=== PATIENT | female | born 1945 | race Caucasian/White ===

== ENCOUNTER → 2017-02-27 | Outpatient (CLI) | payer MEDICARE ==
[~2017-02-27] MED LIST: BUPR150T8 PO; GABA-586 PO; IBUP200T58 PO; LEVO112T4 PO; METF-620 PO; PROAIR HFA8.5 GM INH; RANI300C PO; SERT100T PO; SIMV40TA3 PO
[2017-02-27 09:31] LABS: ALBUMIN 3.8 g/dL (3.4-5.0); CALCIUM 9.5 mg/dL (8.5-10.1); GFR 54.7; POTASSIUM 3.8 mmol/L (3.5-5.1)
[2017-02-27 09:35] LABS: BASO # 0.1 x10^3/uL (0.0-0.2); BASO % 1 % (0-3); EOS % 4 % (0-3); HEMATOCRIT 35.7 % (36.0-47.0); HEMOGLOBIN 11.8 g/dL (12.0-15.5); LYMPH # 1.7 x10^3/uL (1.0-4.8); LYMPH % 22 % (24-48); MEAN CORPUSCULAR HEMOGLOBIN 27 pg (25-35); MEAN CORPUSCULAR HGB CONC 33 g/dL (31-37); MEAN CORPUSCULAR VOLUME 80 fL (79-100); MONO % 6 % (0-9); NEUT % 68 % (31-73); PLATELET COUNT 246 x10^3/uL (140-400); RED BLOOD COUNT 4.47 x10^6/uL (3.50-5.40); RED CELL DISTRIBUTION WIDTH 15.4 % (11.5-14.5)
[2017-02-27 09:36] LABS: BILIRUBIN,URINE SMALL (NEG); GLUCOSE,URINE NEGATIVE (NEG); NITRITE,URINE NEGATIVE (NEG); PH,URINE 5.5; PROTEIN,URINE NEGATIVE (NEG-TRACE); UROBILINOGEN,URINE 0.2 mg/dL (0.2 mg/dL)
[2017-02-27 09:41] LABS: PROTHROMBIN TIME PATIENT 12.2 SEC (11.7-14.0)
[2017-02-27 09:54] LABS: SQUAMOUS EPITHELIAL CELL,UR FEW /LPF
[2017-02-27 09:55] LABS: BACTERIA,URINE FEW /HPF (0-FEW); RBC,URINE 0 /HPF (0-2); WBC,URINE OCC /HPF (0-4)
--- NOTE | 2017-02-27 13:24 | EKG ---
[facility] [address] [place] [address] Test Date: 2017-02-27 Test Time: 13:08:22 Pat Name: MARCELL HODGE Department: Room: Gender: F Coo: : 1945 Requested By: MINI OSMAN Order Number: [id number] Reading MD: Felipa Aldana Measurements Intervals [place] Rate: 68 P: 37 MN: 160 QRS: -5 QRSD: 84 T: 23 QT: 372 QTc: 400 Interpretive Statements SINUS RHYTHM LEFTWARD AXIS NO SPECIFIC ECG ABNORMALITIES RI6.01 No previous ECG available for comparison Electronically Signed On 02-28-2017 20:19:08 CDT by Felipa Aldana
--- NOTE | 2017-02-27 15:49 | RAD ---
Chest radiograph 02/27/2017 at 1351 hours Indication: Right total knee arthroplasty Comparison: Chest radiograph 01/28/2008 Technique: PA and lateral views of the chest are provided. Findings: Cardiomediastinal silhouette is within normal limits. No pleural effusions, pulmonary vascular congestion or pneumothorax. The lungs are clear. There is anterior wedge deformity of upper lumbar vertebrae with focal kyphosis at the thoracolumbar junction, new since the prior radiograph. Findings are likely chronic. Impression: 1. No acute cardiopulmonary process. 2. Focal kyphosis at the thoracolumbar junction with anterior wedge deformity of upper lumbar vertebra, likely related to chronic compression deformity.
== END | disposition home or self-care (01) ==
LOC: SURGPAT 13:45
PROVIDERS: ATTEND Orthopaedic Surgery
DX: M40.295 Other kyphosis, thoracolumbar region (principal); Z96.651 Presence of right artificial knee joint; R79.1 Abnormal coagulation profile
CPT/HCPCS: 36415; 71020; 80048; 81001; 82040; 83036; 85025; 85610; 85651; 85730; 87641; 93005

== ENCOUNTER 2017-03-14 09:31 | Inpatient (IN) | payer MEDICARE ==
[2017-03-14] VITALS (7 sets, daily range): BP systolic 114–143; BP diastolic 58–75
[~2017-03-14] VITALS: Ht 170.2 cm; Wt 85.3 kg
[~2017-03-14 09:31] MED LIST changes: +BACITRACIN 50,000 UNIT in IV NORMAL SALINE 1000ML BAG 1,000 ML IRR ONE; +HYDROcodone/APAP 7.5/325MG 1 TAB TABLET PO PRN; +IV RINGERS,LACTATED 1000ML 1,000 ML IV SCH; +LIDOCAINE 1% 1 ML SYRINGE. ID PRN; +MELOXICAM 7.5 MG TABLET PO PRN; +MORPHINE SULFATE 5 MG, KETOROLAC TROMETHAMINE 30 MG, ROPIVacaine 0.5% PF 60 ML, EPINEPH... INT ART ONE; +ONDANSETRON PF 4 MG/2 ML VIAL. IV PRN; +PROCHLORPERAZINE 10 MG/2 ML VIAL. IV PRN; +TRANEXAMIC ACID 1,000 MG in IV NS 50ML -- 1ST BAG INJ ONE; +TRANEXAMIC ACID 1,000 MG in IV NS 50ML -- 2ND BAG INJ ONE; +fentaNYL PF VIAL 100 MCG/2 ML VIAL IV PRN
[2017-03-14] MEDS ORDERED: MELO15TA6 PO (10:01)
[2017-03-14] MEDS ORDERED: WARF5TAB7 PO (10:01)
[2017-03-14] MEDS ORDERED: ACETAMINOPHEN 500 MG TABLET PO ONE (10:15)
[2017-03-14] MEDS ORDERED: fentaNYL PF VIAL 100 MCG/2 ML VIAL ONE (10:36)
[2017-03-14] MEDS ORDERED: MIDAZOLAM HCL/PF 2 MG/2 ML VIAL. ONE (10:36)
[2017-03-14 11:02] LABS: PROTHROMBIN TIME PATIENT 12.9 SEC (11.7-14.0)
[2017-03-14] MEDS ORDERED: PROPOFOL 20 ML IV ONE (11:10)
[2017-03-14] MEDS ORDERED: ONDANSETRON PF 4 MG/2 ML VIAL. ONE (11:10)
[2017-03-14] MEDS ORDERED: LIDOCAINE 2% PF Vial for OR 5 ML VIAL. ONE (11:10)
[2017-03-14] MEDS ORDERED: DEXAMETHASONE SOD PHOS 20 MG/5 ML VIAL. ONE (11:10)
[2017-03-14] MEDS ORDERED: FAMOTIDINE 20 MG/2 ML VIAL ONE (11:10)
[2017-03-14] MEDS ORDERED: diphenhydrAMINE 50 MG/ML VIAL IV PRN (11:45)
[2017-03-14] MEDS ORDERED: fentaNYL PF VIAL 100 MCG/2 ML VIAL IV PRN ×2 (11:45)
[2017-03-14] MEDS ORDERED: MORPHINE SULFATE 4 MG/ML DISP.SYRIN. IV PRN ×2 (11:45)
[2017-03-14] MEDS ORDERED: CALCIUM CARBONATE 500 MG TAB.CHEW PO PRN (11:45)
[2017-03-14] MEDS ORDERED: ZOLPIDEM 5 MG TABLET. PO PRN (11:45)
[2017-03-14] MEDS ORDERED: MORPHINE SULFATE 10 MG/ML VIAL. IV PRN (11:45)
[2017-03-14] MEDS ORDERED: MORPHINE SULFATE 2 MG/ML DISP.SYRIN. IV PRN (11:45)
[2017-03-14] MEDS ORDERED: PROCHLORPERAZINE 10 MG/2 ML VIAL. IV PRN (11:45)
[2017-03-14] MEDS ORDERED: traMADol 50 MG TABLET PO PRN ×2 (11:45)
[2017-03-14] MEDS ORDERED: 0.9 % SODIUM CHLORIDE 10 ML DISP.SYRIN. IV PRN (11:45)
[2017-03-14] MEDS ORDERED: DEXTROSE 50% 25 GM / 50ML DISP.SYRIN. IV PRN (11:45)
[2017-03-14] MEDS ORDERED: hydrALAZINE 20 MG/ML VIAL. ONE ×2 (12:15→13:07)
[2017-03-14] MEDS ORDERED: GLYCOPYRROLATE 1 MG/5 ML VIAL. ONE (13:07)
[2017-03-14] MEDS ORDERED: NEOSTIGMINE METHYLSULFATE 5 MG/5 ML SYRINGE. ONE (13:08)
[2017-03-14] MEDS ORDERED: DESFLURANE > 120 MINUTES IH ONE (13:33)
--- NOTE | 2017-03-14 14:53 | RAD ---
2 views of the right knee compared to similar study dated January 03, 2017 for postop total knee arthroplasty. Findings: There are postsurgical changes of total knee arthroplasty. No periprosthetic lucencies are identified. No unexpected radiopaque foreign bodies are evident. Impression: 1. Postsurgical changes of a total knee arthroplasty.
--- NOTE | 2017-03-14 14:54 | HP ---
ADMIT DATE: 03/14/2017 ORTHOPEDIC PREOPERATIVE HISTORY AND PHYSICAL PRINCIPAL DIAGNOSIS: Degenerative joint disease of right knee. HISTORY OF PRESENT ILLNESS: The patient has a long history of right knee pain severely limiting her activities of daily living. It worse on startup, much more severe than the left knee, which gives her intermittent problems. She has had previous injections in the past including corticosteroid and viscosupplementation, which were not only very painful, but provided her very little relief. She also has some problems with the left foot chronically, which again overload her right knee and after our previous discussion in clinic, wants to proceed with surgical evaluation and treatment. PAST MEDICAL HISTORY: Significant for depression, diabetes mellitus, hypothyroidism, hypertension, asthma, reflux, and menopause. PAST SURGICAL HISTORY: Rectal fissure repair, hysterectomy due to fibroids, thyroglossal duct cyst, tonsil and adenoidectomy, eye surgeries, umbilical hernia repair, wrist surgery, left knee arthroscopy, cholecystectomy, right knee arthroscopy as well as previous colonoscopies. FAMILY HISTORY: Her mom from type 2 diabetes, hypertension, and cancer of the colon. Father of heart disease. Brother is alive with arthritis. SOCIAL HISTORY: Denies smoking, alcohol or drug use. Her spouse is in a nursing facility. 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 MEDICATIONS: List is reviewed. ALLERGIES: Include SULFA. REVIEW OF SYSTEMS: Denies any chest pain, shortness of breath, or recent medical issues. PHYSICAL EXAMINATION: VITAL SIGNS: Per admission sheet. HEENT: Atraumatic, normocephalic. HEART: Regular rate and rhythm. LUNGS: Clear to auscultation bilaterally. ABDOMEN: Benign. EXTREMITIES: Examination of both knees reveals some joint line tenderness. Pain on extremes of range of motion, particularly on the right knee with patellofemoral crepitus. No evidence of instability present. IMAGING: X-rays of the right knee show severe tricompartmental degenerative changes. ASSESSMENT: Right knee pain and degenerative osteoarthritis. TREATMENT PLAN: I had gone over with her previously in the clinic the risks, benefits, postoperative course of possible total knee arthroplasty including possibility of infection, nerve or blood vessel damage, premature wear or loosening, continued pain, medical or other anesthetic complications among others. All her questions were answered. Consent was obtained and she agrees to proceed with operative evaluation and treatment with joint center admission to follow today. MINI OSMAN MD DR: JOVANA/anjali JOB#: [id number] / [id number] DEDRICK Schwarz APRN
--- NOTE | 2017-03-14 15:08 | PDOC4 ---
Operative Note Operative Note Date of surgery: 03/14/2017 Preoperative diagnosis right knee degenerative joint disease Postoperative diagnosis: Same Procedure: Right total knee arthroplasty Surgeon: Jeff Assist: Homa Anesthesia: Gen. endotracheal Estimated blood loss: 250 mL Complications: None Specimens: Cartilage surfaces to pathology Findings: Above Operative indications: Patient is a 71-year-old female with progressive right knee pain unresponsive to nonoperative treatment including injections worse on start up worse with activity. We had discussed in clinic and preoperatively possible complications of infection nerve or blood vessel damage continued pain medical or other anesthetic consultations among others. All her questions were answered she agrees to proceed with surgical evaluation and treatment. Operative text: Patient was identified procedure verified patient placed in the supine position on the operating table. After adequate amounts of general endotracheal anesthesia were administered a thigh tourniquet was placed and the right lower extremity was prepped and draped in standard sterile fashion. After timeout was performed patient procedure identified and verified, a midline incision was made and a medial parapatellar approach carried out bleeding points were controlled by electrocautery and with the aqua Mantis device tourniquet was not inflated for the procedure. Patella was everted fat pad was excised femur was drilled for the intramedullary cutting guide which was set standard due to lack of a very significant flexion contracture. Sizing carried out with a size 6 femur anterior posterior chamfer cuts were made ACL was excised PCL was retained. Tibial cut was made with extramedullary cutting jig and flexion and extension gaps were balanced with a 9 mm spacer. A size 5 right journey tibial baseplate trial was placed in proper alignment and a size 6 cruciate retaining femoral component which provided excellent stability range of motion and ligament balance. Patella resurfacing was carried out to accommodate a 35 mm patella and lateral excess bone was removed to prevent impingement. Excellent patellar tracking was noted without tilt or instability. Femoral lug holes were drilled tibial was drilled and broached trial components were removed bleeding points again in the area of the capsule geniculate arteries and posterior knee were particularly coagulated with the aqua Mantis device thorough irrigation carried out normal saline solution and the following [employer] journey 2 components were placed using [employer] rally HV bone cement: A size 5 right journey 2 tibial baseplate a size 6 right journey 2 cobalt-chromium cruciate retaining femoral component, both were placed and excess cement were removed a size 35 mm round patellar component was likewise cemented in place. A 9 mm temporary spacer was placed and after cement was cleared and verified dry journey to polyethylene articular insert was snapped in place 9 mm thickness. Again excellent stability ligament balance motion patellofemoral tracking were noted thorough irrigation carried out normal saline solution Hemovac drain and pain catheter were placed the joint capsule and surrounding tissues were infused with pain catheter mixture. Retinaculum was closed with interrupted #2 Ethibond suture and a and reinforced in a running fashion as well as reinforced with a strata fix #1 PDS barbed suture. Subcutaneous closure with buried Vicryl suture subcuticular closure with 3-0 Monocryl and a yolande drain was then placed. Patient was returned to recovery room in stable condition having tolerated procedure well. Please note that Kristen santillan assist was present for the procedure assisting with the prepping draping positioning retraction and skin closure MINI OSMAN MD Mar 14, 2017 15:08
[2017-03-14] MEDS ORDERED: ALBUTEROL SULFATE 2.5 MG/3 ML NEBU. NEB PRN (15:30)
[2017-03-14] MEDS ORDERED: WARFARIN 7.5 MG TABLET. PO ONE (16:00)
[2017-03-14] MEDS: FERROUS SULFATE 325 MG TABLET. PO SCH (21:00)
[2017-03-14] MEDS: SENNOSIDES/DOCUSATE 8.6/50MG TABLET. PO SCH (21:00)
[2017-03-14] MEDS: CELECOXIB 200 MG CAPSULE. PO SCH (21:14)
[2017-03-14] MEDS: buPROPion SR 150 MG TABLET.SA PO SCH (21:14)
[2017-03-14] MEDS: SIMVASTATIN 40 MG TABLET. PO SCH (21:14)
[2017-03-14] MEDS: GABAPENTIN 300 MG CAPSULE. PO SCH ×2 (21:14→21:21)
[2017-03-14] MEDS: SERTRALINE 50 MG TABLET. PO SCH (21:15)
[2017-03-14] MEDS: IV DEXTROSE 5 %-0.45 % NACL 1,000 ML IV SCH ×2 (21:36→23:03)
[2017-03-15 03:00] VITALS: BP 124/61
--- NOTE | 2017-03-15 03:03 | ACF ---
Admission Forms Criteria PAIN MANAGEMENT GR Clinical Indications for Admission to Inpatient Care (Place 'X' for any and all applicable criteria): Hospital admission is needed for appropriate care of the patient because of 1 or more of the following are present (1)(2)(3)(4)(5): [ ]I. Severe pain requiring acute inpatient management as indicated by 1 or more of the following (2)(5)(10): [ ]a) Continuous or frequent (eg, every 2 to 4 hours) parenteral analgesics required [A] [ ]b) Necessity (ie, alternative approaches not effective) for analgesic regimen that can only be performed or initiated in inpatient setting [X]II. Pain causing debilitation to the point of inability to function or be supported at any other level of care [ ]III. Severe side effects from pain medications as indicated by ANY ONE of the following (12)(13)(14)(15): [ ]a) Uncontrollable seizures [ ]b) Cardiac arrhythmias of immediate concern [ ]c) Dehydration that is severe or persistent [ ]d) Vomiting that is severe or persistent [ ]e) Altered mental status that is severe or persistent [ ]f) Obstipation with inadequate GI function to maintain nutrition The original [employer] content created by [employer] has been revised. The portions of the content which have been revised are identified through the use of italic text or in bold, and [employer] [facility] [employer] has neither reviewed nor approved the modified material. All other unmodified content is copyright [employer]. Please see references footnoted in the original [employer] edition 2016 Admission Criteria Met?: Yes RUFINA DIAMOND Mar 15, 2017 03:03
[2017-03-15 05:55] LABS: INR 1.3 (0.8-1.1); PROTHROMBIN TIME PATIENT 15.3 SEC (11.7-14.0)
[2017-03-15] MEDS ORDERED: MAGNESIUM HYDROXIDE 2,400 MG/30 ML ORAL.SUSP. PO PRN (06:00)
[2017-03-15 06:15] VITALS: BP 113/52
[2017-03-15] MEDS: LEVOTHYROXINE 112 MCG TABLET PO SCH (07:22)
[2017-03-15] MEDS: IV DEXTROSE 5 %-0.45 % NACL 1,000 ML IV SCH ×2 (07:36→17:36)
[2017-03-15 07:56] LABS: HEMATOCRIT 30.5 % (36.0-47.0); HEMOGLOBIN 9.6 g/dL (12.0-15.5)
[2017-03-15] MEDS: CELECOXIB 200 MG CAPSULE. PO SCH ×2 (09:00→21:36)
[2017-03-15] MEDS: SENNOSIDES/DOCUSATE 8.6/50MG TABLET. PO SCH (09:13)
[2017-03-15] MEDS: MULTIVITAMIN with MINERAL TABLET. PO SCH (09:13)
[2017-03-15] MEDS: buPROPion SR 150 MG TABLET.SA PO SCH ×2 (09:13→21:37)
[2017-03-15] MEDS: SERTRALINE 50 MG TABLET. PO SCH (09:14)
[2017-03-15] MEDS: FERROUS SULFATE 325 MG TABLET. PO SCH ×2 (09:14→16:38)
[2017-03-15] MEDS: GABAPENTIN 300 MG CAPSULE. PO SCH ×3 (09:16→21:36)
[2017-03-15 11:20] VITALS: BP 112/59
[2017-03-15] MEDS ORDERED: HYDROcodone/APAP 10/325 1 TAB TABLET PO PRN (13:45)
[2017-03-15] MEDS: HYDROcodone/APAP 7.5/325MG 1 TAB TABLET PO PRN ×2 (14:53→21:37)
[2017-03-15] MEDS ORDERED: BISACODYL 10 MG SUPP.RECT. PR PRN (16:00)
[2017-03-15] MEDS ORDERED: WARFARIN 5 MG TABLET. PO ONE (16:00)
--- NOTE | 2017-03-15 18:11 | PDOC ---
PROGRESS NOTES Subjective Subjective Problems overnight: Has difficulty with tolerance to multiple pain medications did well with hydrocodone today Objective Vital Signs Vital Signs Date Time Temp Pulse Resp B/P (MAP) Pulse Ox O2 Delivery O2 Flow Rate FiO2 03/15/17 17:52 16 03/15/17 16:00 95 Room Air 03/15/17 11:20 99.2 84 112/59 (76) 99.2 03/15/17 06:15 2.0 Physical Exam Dressing clean dry intact Hemovac pain catheter is all intact she has good early range of motion intact distal neurovascular status good stability Labs Laboratory Tests Test 03/14/17 10:00 03/14/17 10:05 03/14/17 14:12 03/14/17 17:07 Prothrombin Time 12.9 SEC (11.7-14.0) Prothromb Time International Ratio 1.0 (0.8-1.1) Activated Partial Thromboplast Time 27 SEC (24-38) Glucose (Fingerstick) 123 mg/dL (70-99) 188 mg/dL (70-99) 150 mg/dL (70-99) Test 03/14/17 20:42 03/15/17 04:05 03/15/17 06:35 03/15/17 11:34 Glucose (Fingerstick) 140 mg/dL (70-99) 130 mg/dL (70-99) 108 mg/dL (70-99) Hemoglobin 9.6 g/dL (12.0-15.5) Hematocrit 30.5 % (36.0-47.0) Mean Corpuscular Hemoglobin Concent 32 g/dL (31-37) Prothrombin Time 15.3 SEC (11.7-14.0) Prothromb Time International Ratio 1.3 (0.8-1.1) Laboratory Tests Test 03/14/17 20:42 03/15/17 04:05 03/15/17 06:35 03/15/17 11:34 Glucose (Fingerstick) 140 mg/dL (70-99) 130 mg/dL (70-99) 108 mg/dL (70-99) Hemoglobin 9.6 g/dL (12.0-15.5) Hematocrit 30.5 % (36.0-47.0) Mean Corpuscular Hemoglobin Concent 32 g/dL (31-37) Prothrombin Time 15.3 SEC (11.7-14.0) Prothromb Time International Ratio 1.3 (0.8-1.1) Imaging Postop x-rays show excellent positioning of the total knee arthroplasty Assessment Assessment POD# [1], S/P [right total knee arthroplasty] Problems: Plan Plan of Care Mobilize with physical therapy weightbearing as tolerated Coumadin anticoagulation Placement on discharge MINI OSMAN MD Mar 15, 2017 18:11
[2017-03-15 18:30] VITALS: BP 123/60
[2017-03-15] MEDS: SIMVASTATIN 40 MG TABLET. PO SCH (21:36)
[2017-03-15] MEDS: MELOXICAM 7.5 MG TABLET PO SCH (21:37)
[2017-03-16 02:22] VITALS: BP 122/58
[2017-03-16] MEDS: IV DEXTROSE 5 %-0.45 % NACL 1,000 ML IV SCH ×3 (03:36→23:36)
[2017-03-16 06:00] VITALS: BP 131/68
[2017-03-16 06:03] LABS: HEMATOCRIT 27.4 % (36.0-47.0); HEMOGLOBIN 8.8 g/dL (12.0-15.5)
[2017-03-16 06:19] LABS: INR 1.7 (0.8-1.1); PROTHROMBIN TIME PATIENT 19.3 SEC (11.7-14.0)
[2017-03-16] MEDS: MELOXICAM 7.5 MG TABLET PO SCH (06:24)
[2017-03-16] MEDS: LEVOTHYROXINE 112 MCG TABLET PO SCH (06:24)
[2017-03-16] MEDS: CELECOXIB 200 MG CAPSULE. PO SCH ×2 (08:25→17:04)
[2017-03-16] MEDS: GABAPENTIN 300 MG CAPSULE. PO SCH ×3 (08:26→20:51)
[2017-03-16] MEDS: MULTIVITAMIN with MINERAL TABLET. PO SCH (08:27)
[2017-03-16] MEDS: SENNOSIDES/DOCUSATE 8.6/50MG TABLET. PO SCH (08:27)
[2017-03-16] MEDS: buPROPion SR 150 MG TABLET.SA PO SCH ×2 (08:27→20:51)
[2017-03-16] MEDS: SERTRALINE 50 MG TABLET. PO SCH (08:27)
[2017-03-16] MEDS: FERROUS SULFATE 325 MG TABLET. PO SCH ×2 (08:27→17:02)
[2017-03-16] MEDS: HYDROcodone/APAP 7.5/325MG 1 TAB TABLET PO PRN (08:30)
[2017-03-16 12:00] VITALS: BP 129/64
--- NOTE | 2017-03-16 14:21 | PDOC ---
ORTHO PROGRESS NOTES Subjective Patient is a little lethargic today, having some trouble with pain medication controlling her pain but not causing too much drowsiness. Therapy is going okay. Post-op Day: 2 (Right total knee arthroplasty) Vitals Vital Signs Date Time Temp Pulse Resp B/P (MAP) Pulse Ox O2 Delivery O2 Flow Rate FiO2 03/16/17 12:00 98.3 79 18 129/64 (85) 96 Room Air 98.3 03/16/17 08:00 2.0 Labs Laboratory Tests Test 03/14/17 17:07 03/14/17 20:42 03/15/17 04:05 03/15/17 06:35 Glucose (Fingerstick) 150 mg/dL (70-99) 140 mg/dL (70-99) 130 mg/dL (70-99) Hemoglobin 9.6 g/dL (12.0-15.5) Hematocrit 30.5 % (36.0-47.0) Mean Corpuscular Hemoglobin Concent 32 g/dL (31-37) Prothrombin Time 15.3 SEC (11.7-14.0) Prothromb Time International Ratio 1.3 (0.8-1.1) Test 03/15/17 11:34 03/15/17 16:37 03/15/17 20:55 03/16/17 05:10 Glucose (Fingerstick) 108 mg/dL (70-99) 105 mg/dL (70-99) 124 mg/dL (70-99) Hemoglobin 8.8 g/dL (12.0-15.5) Hematocrit 27.4 % (36.0-47.0) Mean Corpuscular Hemoglobin Concent 32 g/dL (31-37) Prothrombin Time 19.3 SEC (11.7-14.0) Prothromb Time International Ratio 1.7 (0.8-1.1) Test 03/16/17 06:49 03/16/17 11:48 Glucose (Fingerstick) 132 mg/dL (70-99) 109 mg/dL (70-99) Laboratory Tests Test 03/15/17 16:37 03/15/17 20:55 03/16/17 05:10 03/16/17 06:49 Glucose (Fingerstick) 105 mg/dL (70-99) 124 mg/dL (70-99) 132 mg/dL (70-99) Hemoglobin 8.8 g/dL (12.0-15.5) Hematocrit 27.4 % (36.0-47.0) Mean Corpuscular Hemoglobin Concent 32 g/dL (31-37) Prothrombin Time 19.3 SEC (11.7-14.0) Prothromb Time International Ratio 1.7 (0.8-1.1) Test 03/16/17 11:48 Glucose (Fingerstick) 109 mg/dL (70-99) Notes Patient is drowsy but arousable to voice and touch. Answers questions appropriately. Breathing unlabored, no acute distress. Neurovascular intact right lower extremity Problems: (1) Degenerative arthritis of right knee Assessment and Plan Still working on getting the right regimen with pain medication Nursing monitoring Anticoagulation per pharmacy Weightbearing as tolerated, continue PT OT Problem Qualifiers (1) Degenerative arthritis of right knee: Osteoarthritis type: primary Qualified Codes: M17.11 - Unilateral primary osteoarthritis, right knee VITALY PRECIADO APRN Mar 16, 2017 14:21
[2017-03-16] MEDS ORDERED: WARFARIN 2 MG TABLET. PO ONE (16:00)
--- NOTE | 2017-03-16 17:29 | PATHOLOGY ---
PATHOLOGY REPORT * * * * * * * * FINAL DIAGNOSIS: Segments of bone and soft tissue, right total knee arthroplasty: - Advanced degenerative arthritis. ([facility]; 03/16/2017) REPORT ELECTRONICALLY SIGNED BY: Jax Negro M.D. DATE/TIME: 03/16/2017 17:28 * * * * * * * * GROSS PATHOLOGY: Received in formalin labeled "Aleida Slaughter, right knee bone and tissue," are multiple segments of bone, including tibial plateau, measuring 13.8 x 10.0 x 2.5 cm in aggregate dimensions admixed with soft tissue; meniscus is present. The specimen shows focal eburnation of the articular surfaces. Cement Mason Maintenance sections of bone and soft tissue are submitted in cassette A1, following decalcification. ([facility]; 03/15/2017) INITIAL CPT CODE(S): A; 80573, 91478 Professional services performed [place] [facility] [place] [address] Technical services performed by [facility] at [address] [place] [address], [facility] [address] [address]. SPECIMEN(S) RECEIVED: A.Right knee bone and tissue CLINICAL HISTORY: OA PATIENT: ALEIDA SLAUGHTER /AGE: 3 1945 (Age: 71) PATIENT #: [id number] ALT CASE #: SPECIMEN COLLECTION DATE: 03/14/2017 SPECIMEN RECEIVED DATE: 03/14/2017 [facility] - [address] [place] [address] - PHONE: [phone] * * * END OF REPORT * * *
[2017-03-16 18:31] VITALS: BP 121/63
[2017-03-16] MEDS: SIMVASTATIN 40 MG TABLET. PO SCH (20:51)
[2017-03-17] MEDS: HYDROcodone/APAP 7.5/325MG 1 TAB TABLET PO PRN ×2 (05:22→08:41)
[2017-03-17] MEDS: LEVOTHYROXINE 112 MCG TABLET PO SCH (05:24)
[2017-03-17 06:00] VITALS: BP 131/68
[2017-03-17 06:25] LABS: HEMATOCRIT 29.3 % (36.0-47.0); HEMOGLOBIN 9.5 g/dL (12.0-15.5)
[2017-03-17 06:34] LABS: INR 1.9 (0.8-1.1); PROTHROMBIN TIME PATIENT 20.6 SEC (11.7-14.0)
[2017-03-17] MEDS: SENNOSIDES/DOCUSATE 8.6/50MG TABLET. PO SCH (08:40)
[2017-03-17] MEDS: CELECOXIB 200 MG CAPSULE. PO SCH (08:40)
[2017-03-17] MEDS: FERROUS SULFATE 325 MG TABLET. PO SCH (08:40)
[2017-03-17] MEDS: GABAPENTIN 300 MG CAPSULE. PO SCH ×2 (08:40→14:38)
[2017-03-17] MEDS: MULTIVITAMIN with MINERAL TABLET. PO SCH (08:40)
[2017-03-17] MEDS: buPROPion SR 150 MG TABLET.SA PO SCH (08:40)
[2017-03-17] MEDS: SERTRALINE 50 MG TABLET. PO SCH (08:40)
[2017-03-17] MEDS ORDERED: WARFARIN 2 MG TABLET. PO ONE (14:00)
[2017-03-17 14:30] VITALS: BP 119/56
--- NOTE | 2017-03-18 08:13 | DS ---
DATE OF DISCHARGE: 03/17/2017 DATE OF ADMISSION: 03/14/2017 DATE OF DISCHARGE: 03/17/2017 PRINCIPAL DIAGNOSIS: Right knee degenerative joint disease. PROCEDURE: Right total knee arthroplasty. DISCHARGE MEDICATIONS: Include [place] 7.5/325 one half to one tablet q. 4 hours p.r.n. pain, Coumadin as directed by Anticoagulation Clinic and resumption of home medications. Follow up with Dr. Aguilar in 2 weeks. DISCHARGE INSTRUCTIONS: Weightbearing as tolerated, standard total knee precautions. Report any redness, drainage, fever, chills. Maintain JOSHUA drain. BRIEF DESCRIPTION OF HOSPITAL COURSE: The patient underwent an uncomplicated total knee arthroplasty, was noted to have some previous concerns with tolerance of narcotic pain medications and was noted to have some significant sedative effects even from the hydrocodone, which was ____ from previous medications. She wishes to avoid them altogether; however, although pain was reasonably controlled, certainly needed some especially with activities and physical therapy. On date of discharge, was discharged to ____ rehabilitation in stable condition. MINI AGUILAR MD DR: JOVANA/anjali JOB#: [id number] / [id number]
[2017-03-18] MEDS ORDERED: WARFARIN 2 MG TABLET. PO SCH (16:00)
== END 2017-03-17 16:10 | DRG 470 ==
LOC: OPSVCIP 09:31 → 4 SOUTHEST 15:24
PROVIDERS: ADMIT Orthopaedic Surgery; ATTEND Orthopaedic Surgery
PROC: 0SRC0J9 Replacement of Right Knee Joint with Synthetic Substitute, Cemented, Open Approach (ICD-10-PCS; principal; 2017-03-14 11:10)
DX: M17.11 Unilateral primary osteoarthritis, right knee (principal); E11.9 Type 2 diabetes mellitus without complications; I10 Essential (primary) hypertension; E03.9 Hypothyroidism, unspecified; J45.909 Unspecified asthma, uncomplicated; K21.9 Gastro-esophageal reflux disease without esophagitis; F32.9 Major depressive disorder, single episode, unspecified; Z90.710 Acquired absence of both cervix and uterus; Z90.49 Acquired absence of other specified parts of digestive tract; Z88.2 Allergy status to sulfonamides; Z80.0 Family history of malignant neoplasm of digestive organs; Z82.49 Family history of ischemic heart disease and other diseases of the circulatory system; Z83.3 Family history of diabetes mellitus
CPT/HCPCS: 36415; 73560; 82962; 85014; 85018; 85610; 85730; 86850; 86900; 86901; 88305; 88311; J0171; J0360; J0690; J1100; J1885; J2250; J2270; J2405; J2704; J2710; J2795; J3010; J3490; J7030; J7120; S0028; 97116; 97150; 97535; C1769; J2001

== ENCOUNTER → 2017-07-04 | Outpatient (CLI) | payer MEDICARE ==
[~2017-07-04] MED LIST changes: -BACITRACIN 50,000 UNIT in IV NORMAL SALINE 1000ML BAG 1,000 ML IRR ONE; -HYDROcodone/APAP 7.5/325MG 1 TAB TABLET PO PRN; -IV RINGERS,LACTATED 1000ML 1,000 ML IV SCH; -LIDOCAINE 1% 1 ML SYRINGE. ID PRN; +MELO15TA6 PO; -MELOXICAM 7.5 MG TABLET PO PRN; -MORPHINE SULFATE 5 MG, KETOROLAC TROMETHAMINE 30 MG, ROPIVacaine 0.5% PF 60 ML, EPINEPH... INT ART ONE; -ONDANSETRON PF 4 MG/2 ML VIAL. IV PRN; -PROCHLORPERAZINE 10 MG/2 ML VIAL. IV PRN; -TRANEXAMIC ACID 1,000 MG in IV NS 50ML -- 1ST BAG INJ ONE; -TRANEXAMIC ACID 1,000 MG in IV NS 50ML -- 2ND BAG INJ ONE; +WARF5TAB7 PO; -fentaNYL PF VIAL 100 MCG/2 ML VIAL IV PRN
[2017-07-04 14:47] LABS: BASO # 0.1 x10^3/uL (0.0-0.2); BASO % 1 % (0-3); EOS % 2 % (0-3); HEMATOCRIT 41.2 % (36.0-47.0); HEMOGLOBIN 13.2 g/dL (12.0-15.5); LYMPH # 1.9 x10^3/uL (1.0-4.8); LYMPH % 22 % (24-48); MEAN CORPUSCULAR HEMOGLOBIN 27 pg (25-35); MEAN CORPUSCULAR HGB CONC 32 g/dL (31-37); MEAN CORPUSCULAR VOLUME 83 fL (79-100); MONO % 5 % (0-9); NEUT % 70 % (31-73); PLATELET COUNT 281 x10^3/uL (140-400); RED BLOOD COUNT 4.96 x10^6/uL (3.50-5.40); WHITE BLOOD COUNT 8.3 x10^3/uL (4.0-11.0)
[2017-07-04 14:56] LABS: CALCIUM 9.9 mg/dL (8.5-10.1); GFR 54.7; POTASSIUM 3.8 mmol/L (3.5-5.1)
[2017-07-04 14:59] LABS: INR 1.1 (0.8-1.1); PROTHROMBIN TIME PATIENT 13.5 SEC (11.7-14.0)
[2017-07-04 15:01] LABS: BILIRUBIN,URINE NEGATIVE (NEG); GLUCOSE,URINE NEGATIVE (NEG); NITRITE,URINE NEGATIVE (NEG); PH,URINE 5.5; PROTEIN,URINE NEGATIVE (NEG-TRACE); UROBILINOGEN,URINE 0.2 mg/dL (0.2 mg/dL)
[2017-07-04 15:09] LABS: BACTERIA,URINE 0 /HPF (0-FEW); SQUAMOUS EPITHELIAL CELL,UR FEW /LPF; WBC,URINE 0 /HPF (0-4)
== END | disposition home or self-care (01) ==
LOC: SURGPAT 13:32
PROVIDERS: ATTEND Orthopaedic Surgery
DX: Z01.818 Encounter for other preprocedural examination (principal); M17.12 Unilateral primary osteoarthritis, left knee; Z96.652 Presence of left artificial knee joint
CPT/HCPCS: 36415; 80048; 81001; 82040; 83036; 85025; 85610; 85651; 85730; 87641

== ENCOUNTER → 2017-09-27 | Outpatient (CLI) | payer MEDICARE ==
[2017-09-27 14:27] LABS: ADD MAN DIFF? NO
[2017-09-27 14:37] LABS: BASO % 0 % (0-3); EOS # 0.2 x10^3/uL (0.0-0.7); EOS % 2 % (0-3); HEMATOCRIT 42.8 % (36.0-47.0); HEMOGLOBIN 13.9 g/dL (12.0-15.5); LYMPH # 1.9 x10^3/uL (1.0-4.8); LYMPH % 20 % (24-48); MEAN CORPUSCULAR HEMOGLOBIN 28 pg (25-35); MEAN CORPUSCULAR HGB CONC 33 g/dL (31-37); MEAN CORPUSCULAR VOLUME 86 fL (79-100); MONO # 0.6 x10^3/uL (0.0-1.1); MONO % 6 % (0-9); NEUT # 6.6 x10^3uL (1.8-7.7); NEUT % 71 % (31-73); PLATELET COUNT 227 x10^3/uL (140-400); RED CELL DISTRIBUTION WIDTH 15.5 % (11.5-14.5); WHITE BLOOD COUNT 9.3 x10^3/uL (4.0-11.0)
[2017-09-27 14:44] LABS: BILIRUBIN,URINE NEGATIVE (NEG); CLARITY,URINE CLEAR; COLOR,URINE YELLOW; GLUCOSE,URINE NEGATIVE (NEG); INR 1.1 (0.8-1.1); NITRITE,URINE NEGATIVE (NEG); PARTIAL THROMBOPLASTIN TIME 25 SEC (24-38); PH,URINE 5.5; PROTEIN,URINE NEGATIVE (NEG-TRACE); PROTHROMBIN TIME PATIENT 13.2 SEC (11.7-14.0); UROBILINOGEN,URINE 0.2 mg/dL (0.2 mg/dL)
[2017-09-27 14:51] LABS: BACTERIA,URINE FEW /HPF (0-FEW); RBC,URINE 0 /HPF (0-2); SQUAMOUS EPITHELIAL CELL,UR FEW /LPF
[2017-09-27 15:42] LABS: SEDIMENTATION RATE 8 (0-25)
[2017-09-27 18:04] LABS: ALBUMIN 3.8 g/dL (3.4-5.0); ANION GAP 9 (6-14); BLOOD UREA NITROGEN 15 mg/dL (7-20); CALCIUM 10.8 mg/dL (8.5-10.1); CARBON DIOXIDE 25 mmol/L (21-32); CHLORIDE 105 mmol/L (98-107); GFR 54.7; GLUCOSE 102 mg/dL (70-99); POTASSIUM 4.3 mmol/L (3.5-5.1); SODIUM 139 mmol/L (136-145)
[2017-09-28 03:21] LABS: MRSA BY PCR Negative (Negative)
[2017-09-28 06:19] LABS: HEMOGLOBIN A1C 5.6 % (4.8-5.6)
== END | disposition home or self-care (01) ==
LOC: SURGPAT 13:00
DX: Z01.818 Encounter for other preprocedural examination (principal); I10 Essential (primary) hypertension; E11.9 Type 2 diabetes mellitus without complications; F32.9 Major depressive disorder, single episode, unspecified; M17.0 Bilateral primary osteoarthritis of knee; E03.9 Hypothyroidism, unspecified; J45.909 Unspecified asthma, uncomplicated; R79.89 Other specified abnormal findings of blood chemistry; R79.1 Abnormal coagulation profile; Z79.899 Other long term (current) drug therapy
CPT/HCPCS: 36415; 80048; 81001; 82040; 83036; 85025; 85610; 85651; 85730; 87086; 87641

== ENCOUNTER 2017-10-17 08:45 | Inpatient (IN) | payer MEDICARE ==
[2017-10-17] MEDS: IV RINGERS,LACTATED 1000ML 1,000 ML IV (07:00)
[~2017-10-17 08:45] MED LIST changes: -BUPR150T8 PO; -GABA-586 PO; +HYDROcodone/APAP 7.5/325MG 1 TAB TABLET PO; -IBUP200T58 PO; -LEVO112T4 PO; +LIDOCAINE 1% PF 2 ML VIAL. ID; -MELO15TA6 PO; +MELOXICAM 7.5 MG TABLET PO; -METF-620 PO; +ONDANSETRON PF 4 MG/2 ML VIAL. IV; -PROAIR HFA8.5 GM INH; +PROCHLORPERAZINE 10 MG/2 ML VIAL. IV; -RANI300C PO; -SERT100T PO; -SIMV40TA3 PO; -WARF5TAB7 PO; +fentaNYL PF VIAL 100 MCG/2 ML VIAL IV
[2017-10-17 09:34] LABS: POC GLUCOSE 112 mg/dL (70-99)
[2017-10-17 09:40] LABS: PARTIAL THROMBOPLASTIN TIME 26 SEC (24-38); PROTHROMBIN TIME PATIENT 12.5 SEC (11.7-14.0)
[2017-10-17] MEDS: TRANEXAMIC ACID 1,000 MG in IV NS 50ML -- 1ST BAG INJ (11:00)
[2017-10-17] MEDS ORDERED: BUPIVACAINE MPF 0.5% 30 ML VIAL. (11:04)
[2017-10-17] MEDS: MORPHINE SULFATE 5 MG, KETOROLAC 30 MG, ROPIVacaine 0.5% PF 60 ML, EPINEPHrine 0.5 MG i... INT ART (11:31)
[2017-10-17] MEDS ORDERED: PROPOFOL 20 ML IV (11:51)
[2017-10-17] MEDS ORDERED: PROPOFOL 50 ML IV ×2 (11:51→12:30)
[2017-10-17] MEDS ORDERED: ONDANSETRON PF 4 MG/2 ML VIAL. (11:51)
[2017-10-17] MEDS ORDERED: DEXAMETHASONE SOD PHOS 20 MG/5 ML VIAL. (11:52)
[2017-10-17] MEDS ORDERED: PHENYLEPHRINE 10 MG/ML VIAL. ×2 (11:52→12:12)
[2017-10-17] MEDS: TRANEXAMIC ACID 1,000 MG in IV NS 50ML -- 2ND BAG INJ (12:50)
[2017-10-17] MEDS ORDERED: fentaNYL PF VIAL 100 MCG/2 ML VIAL (13:51)
[2017-10-17] MEDS: fentaNYL PF VIAL 100 MCG/2 ML VIAL IV ×4 (13:53→15:07)
[2017-10-17] MEDS ORDERED: DEXTROSE 50% 25 GM / 50ML DISP.SYRIN. IV (14:00)
[2017-10-17] MEDS ORDERED: MORPHINE SULFATE 4 MG/ML DISP.SYRIN. IV ×2 (14:00)
[2017-10-17] MEDS ORDERED: 0.9 % SODIUM CHLORIDE 10 ML DISP.SYRIN. IV (14:00)
[2017-10-17] MEDS ORDERED: PROCHLORPERAZINE 10 MG/2 ML VIAL. IV (14:00)
[2017-10-17] MEDS ORDERED: ZOLPIDEM 5 MG TABLET. PO (14:00)
[2017-10-17] MEDS ORDERED: fentaNYL PF VIAL 100 MCG/2 ML VIAL IV ×2 (14:00)
[2017-10-17] MEDS ORDERED: traMADol 50 MG TABLET PO (14:00)
[2017-10-17] MEDS ORDERED: CALCIUM CARBONATE 500 MG TAB.CHEW PO (14:00)
[2017-10-17] MEDS ORDERED: diphenhydrAMINE 50 MG/ML VIAL IV (14:00)
[2017-10-17 14:54] LABS: POC GLUCOSE 129 mg/dL (70-99)
[2017-10-17] MEDS: IV DEXTROSE 5 %-0.45 % NACL 1,000 ML IV ×2 (15:46→23:58)
[2017-10-17] MEDS: MULTIVITAMIN with MINERAL TABLET. PO (16:54)
[2017-10-17] MEDS: FERROUS SULFATE 325 MG TABLET. PO (16:54)
[2017-10-17] MEDS: SENNOSIDES/DOCUSATE 8.6/50MG TABLET. PO (16:54)
[2017-10-17] MEDS: WARFARIN 7.5 MG TABLET. PO (16:54)
[2017-10-17] MEDS: HYDROcodone/APAP 7.5/325MG 1 TAB TABLET PO ×2 (16:55→20:35)
[2017-10-17] MEDS: ceFAZolin SODIUM IV Push 1 GM VIAL. IVP ×2 (16:56→23:35)
[2017-10-17] MEDS ORDERED: ceFAZolin SODIUM 1 GM in IV DEXTROSE 5% 50 ML IV (17:00)
[2017-10-17] MEDS: KETOROLAC 30 MG, BUPIVACAINE MPF 0.25% 20 ML, EPINEPHrine 0.5 MG in TOTAL VOLUME SYRING... INT ART (18:25)
[2017-10-18] MEDS: HYDROcodone/APAP 7.5/325MG 1 TAB TABLET PO ×4 (02:53→19:24)
[2017-10-18 03:48] LABS: INR 1.2 (0.8-1.1); PROTHROMBIN TIME PATIENT 15.1 SEC (11.7-14.0)
[2017-10-18] MEDS: traMADol 50 MG TABLET PO (05:47)
[2017-10-18] MEDS: KETOROLAC 30 MG, BUPIVACAINE MPF 0.25% 20 ML, EPINEPHrine 0.5 MG in TOTAL VOLUME SYRING... INT ART (05:48)
[2017-10-18] MEDS: ceFAZolin SODIUM IV Push 1 GM VIAL. IVP (05:48)
[2017-10-18] MEDS ORDERED: MAGNESIUM HYDROXIDE 2,400 MG/30 ML ORAL.SUSP. PO (06:00)
[2017-10-18 06:07] LABS: HEMATOCRIT 34.2 % (36.0-47.0); MEAN CORPUSCULAR HGB CONC 32 g/dL (31-37)
[2017-10-18 06:49] LABS: POC GLUCOSE 120 mg/dL (70-99)
[2017-10-18] MEDS: SENNOSIDES/DOCUSATE 8.6/50MG TABLET. PO (08:11)
[2017-10-18] MEDS: FERROUS SULFATE 325 MG TABLET. PO ×2 (08:11→17:01)
[2017-10-18] MEDS: MULTIVITAMIN with MINERAL TABLET. PO (08:11)
[2017-10-18] MEDS: buPROPion SR 150 MG TABLET.SA PO ×2 (11:28→21:06)
[2017-10-18] MEDS: LEVOTHYROXINE 112 MCG TABLET PO (11:28)
[2017-10-18] MEDS: MELOXICAM 7.5 MG TABLET PO (11:30)
[2017-10-18] MEDS: SERTRALINE 50 MG TABLET. PO (11:30)
[2017-10-18 11:33] LABS: POC GLUCOSE 105 mg/dL (70-99)
[2017-10-18] MEDS: GABAPENTIN 300 MG CAPSULE. PO ×2 (14:31→21:06)
[2017-10-18] MEDS ORDERED: BISACODYL 10 MG SUPP.RECT. PR (16:00)
[2017-10-18 16:42] LABS: POC GLUCOSE 105 mg/dL (70-99)
[2017-10-18] MEDS: WARFARIN 5 MG TABLET. PO (17:00)
[2017-10-18 20:38] LABS: POC GLUCOSE 140 mg/dL (70-99)
[2017-10-18] MEDS: FAMOTIDINE 20 MG TABLET. PO (21:06)
[2017-10-18] MEDS: SIMVASTATIN 40 MG TABLET. PO (21:06)
[2017-10-19 05:23] LABS: HEMATOCRIT 28.1 % (36.0-47.0); HEMOGLOBIN 9.2 g/dL (12.0-15.5); MEAN CORPUSCULAR HGB CONC 33 g/dL (31-37)
[2017-10-19 05:52] LABS: INR 1.8 (0.8-1.1); PROTHROMBIN TIME PATIENT 20.1 SEC (11.7-14.0)
[2017-10-19 05:54] LABS: POC GLUCOSE 141 mg/dL (70-99)
[2017-10-19] MEDS: LEVOTHYROXINE 112 MCG TABLET PO (06:25)
[2017-10-19] MEDS: FAMOTIDINE 20 MG TABLET. PO ×2 (08:39→21:19)
[2017-10-19] MEDS: MELOXICAM 7.5 MG TABLET PO (08:39)
[2017-10-19] MEDS: GABAPENTIN 300 MG CAPSULE. PO ×3 (08:40→21:19)
[2017-10-19] MEDS: FERROUS SULFATE 325 MG TABLET. PO ×2 (08:40→17:06)
[2017-10-19] MEDS: MULTIVITAMIN with MINERAL TABLET. PO (08:40)
[2017-10-19] MEDS: SERTRALINE 50 MG TABLET. PO (08:40)
[2017-10-19] MEDS: buPROPion SR 150 MG TABLET.SA PO ×2 (08:40→21:19)
[2017-10-19] MEDS: SENNOSIDES/DOCUSATE 8.6/50MG TABLET. PO (08:44)
[2017-10-19 11:41] LABS: POC GLUCOSE 118 mg/dL (70-99)
[2017-10-19 17:01] LABS: POC GLUCOSE 109 mg/dL (70-99)
[2017-10-19] MEDS: WARFARIN 2 MG TABLET. PO (17:06)
[2017-10-19] MEDS: SIMVASTATIN 40 MG TABLET. PO (21:19)
[2017-10-20 03:27] LABS: HEMATOCRIT 27.1 % (36.0-47.0); HEMOGLOBIN 8.9 g/dL (12.0-15.5); MEAN CORPUSCULAR HGB CONC 33 g/dL (31-37)
[2017-10-20] MEDS: LEVOTHYROXINE 112 MCG TABLET PO (06:30)
[2017-10-20] MEDS: buPROPion SR 150 MG TABLET.SA PO (09:48)
[2017-10-20] MEDS: FERROUS SULFATE 325 MG TABLET. PO (09:48)
[2017-10-20] MEDS: SERTRALINE 50 MG TABLET. PO (09:48)
[2017-10-20] MEDS: MELOXICAM 7.5 MG TABLET PO (09:49)
[2017-10-20] MEDS: SENNOSIDES/DOCUSATE 8.6/50MG TABLET. PO (09:49)
[2017-10-20] MEDS: GABAPENTIN 300 MG CAPSULE. PO ×2 (09:49→13:17)
[2017-10-20] MEDS: MULTIVITAMIN with MINERAL TABLET. PO (09:50)
[2017-10-20] MEDS: FAMOTIDINE 20 MG TABLET. PO (09:50)
[2017-10-20 11:32] LABS: POC GLUCOSE 147 mg/dL (70-99)
[2017-10-20] MEDS: WARFARIN 3 MG TABLET. PO (13:17)
[2017-10-20] MEDS: ACETAMINOPHEN 500 MG TABLET PO (13:19)
[2017-10-21] MEDS ORDERED: WARFARIN 3 MG TABLET. PO (16:00)
== END 2017-10-20 16:06 | DRG 470 ==
LOC: OPSVCIP 08:45 → 4 SOUTHEST 10-19 13:48
PROC: 0SRD0J9 Replacement of Left Knee Joint with Synthetic Substitute, Cemented, Open Approach (ICD-10-PCS; principal; 2017-10-17 10:05)
DX: M17.12 Unilateral primary osteoarthritis, left knee (principal); E11.9 Type 2 diabetes mellitus without complications; E03.9 Hypothyroidism, unspecified; K21.9 Gastro-esophageal reflux disease without esophagitis; J45.909 Unspecified asthma, uncomplicated; I10 Essential (primary) hypertension; G89.29 Other chronic pain; Z96.651 Presence of right artificial knee joint; F32.9 Major depressive disorder, single episode, unspecified; Z90.710 Acquired absence of both cervix and uterus; Z83.3 Family history of diabetes mellitus; Z82.49 Family history of ischemic heart disease and other diseases of the circulatory system; Z90.49 Acquired absence of other specified parts of digestive tract; Z90.89 Acquired absence of other organs; Z88.2 Allergy status to sulfonamides; Z88.5 Allergy status to narcotic agent
CPT/HCPCS: 36415; 73560; 82962; 85014; 85018; 85610; 85730; 86850; 86900; 86901; 88305; 88311; 97116-GP; 97150-GP; 97162-GP; 97166-GO; 97530-GO; 97530-GP; 97535-GO; C1713; J0171; J0690; J1100; J1885; J2270; J2405; J2704; J2795; J3010; J3490; J7120

== ENCOUNTER → 2018-02-12 | Outpatient (CLI) | payer MEDICARE | END | disposition home or self-care (01) | LOC: KCIC DEXA 11:13 | DX: Z13.820 Encounter for screening for osteoporosis (principal); E11.9 Type 2 diabetes mellitus without complications; M81.0 Age-related osteoporosis without current pathological fracture; M85.88 Other specified disorders of bone density and structure, other site; Z78.0 Asymptomatic menopausal state | CPT/HCPCS: 77080 ==

== ENCOUNTER → 2018-09-25 | Outpatient (CLI) | payer MEDICARE ==
[2017-10-20 11:35] VITALS: BP 121/57
[~2018-09-25] MED LIST changes: +ALBU2.5V8 INH; +BUPR150T8 PO; +FERR325T14 PO; +GABA300C18 PO; +GADOBUTROL 10 MMOL/10 ML VIAL IV ONE; -HYDROcodone/APAP 7.5/325MG 1 TAB TABLET PO; +IBUP200T58 PO; +LEVO112T4 PO; -LIDOCAINE 1% PF 2 ML VIAL. ID; +MELO15TA23 PO; +MELO15TA6 PO; -MELOXICAM 7.5 MG TABLET PO; +METF10007 PO; -ONDANSETRON PF 4 MG/2 ML VIAL. IV; -PROCHLORPERAZINE 10 MG/2 ML VIAL. IV; +RANI300C PO; +SERT100T PO; +SIMV40TA3 PO; +WARF-31 PO; +WARF3TAB50 PO; -fentaNYL PF VIAL 100 MCG/2 ML VIAL IV
--- NOTE | 2018-09-25 13:13 | RAD ---
EXAM: Brain MRI with and without contrast. HISTORY: Memory loss. TECHNIQUE: Multiplanar, multisequence magnetic resonance imaging of the brain was performed prior to and following the administration of 9 cc Gadavist intravenous contrast. COMPARISON: None. FINDINGS: There is no restricted diffusion to suggest acute or subacute infarction. There is no susceptibility effect to suggest hemorrhage. There is no mass effect or midline shift. There is no hydrocephalus. There are multiple focal areas of T2/FLAIR hyperintensity throughout the cerebral white run fior, most commonly due to chronic small vessel disease. There is mild cerebral volume loss. No suspicious calvarial lesion is seen. The orbits and mastoid air cells are unremarkable. Their is minimal mucosal thickening involving the sphenoid sinus. There are normal flow voids within the cerebral vessels. There is mild anterolisthesis of C2 on C3. IMPRESSION: 1. No acute intracranial finding. 2. Scattered areas of signal change within the cerebral white matter and fior, most commonly due to chronic small vessel disease. 3. Mild cerebral volume loss. Electronically signed by: Anneliese Rios MD (09/25/2018 1:10 PM) [id number]
== END | disposition home or self-care (01) ==
LOC: MRI 11:08
PROVIDERS: ATTEND Nurse Practitioner Family
DX: G45.9 Transient cerebral ischemic attack, unspecified (principal); I10 Essential (primary) hypertension; R41.3 Other amnesia; R90.82 White matter disease, unspecified
CPT/HCPCS: 70553; A9585

== ENCOUNTER → 2019-10-31 | Outpatient (CLI) | payer MEDICARE ==
[2017-10-20 11:35] VITALS: BP 121/57
[~2019-10-31] MED LIST changes: -GADOBUTROL 10 MMOL/10 ML VIAL IV ONE; +SIMV40TA18 PO; -SIMV40TA3 PO
[2019-10-31 13:12] LABS: BASO # 0.1 x10^3/uL (0.0-0.2); BASO % 1 % (0-3); EOS # 0.2 x10^3/uL (0.0-0.7); EOS % 2 % (0-3); HEMATOCRIT 39.7 % (36.0-47.0); LYMPH # 2.4 x10^3/uL (1.0-4.8); LYMPH % 25 % (24-48); MEAN CORPUSCULAR HEMOGLOBIN 29 pg (25-35); MEAN CORPUSCULAR HGB CONC 33 g/dL (31-37); MEAN CORPUSCULAR VOLUME 88 fL (79-100); MONO # 0.7 x10^3/uL (0.0-1.1); MONO % 7 % (0-9); NEUT # 6.4 x10^3/uL (1.8-7.7); NEUT % 66 % (31-73); PLATELET COUNT 232 x10^3/uL (140-400); RED BLOOD COUNT 4.53 x10^6/uL (3.50-5.40); RED CELL DISTRIBUTION WIDTH 14.2 % (11.5-14.5); WHITE BLOOD COUNT 9.7 x10^3/uL (4.0-11.0)
[2019-10-31 13:21] LABS: ALBUMIN 3.7 g/dL (3.4-5.0); ALBUMIN/GLOBULIN RATIO 1.1 (1.0-1.7); CALCIUM 10.2 mg/dL (8.5-10.1); CREATININE 1.1 mg/dL (0.6-1.0); GFR 48.6; POTASSIUM 4.1 mmol/L (3.5-5.1); TOTAL BILIRUBIN 0.3 mg/dL (0.2-1.0); TOTAL PROTEIN 7.2 g/dL (6.4-8.2)
[2019-10-31 13:32] LABS: FREE T4 0.81 ng/dL (0.76-1.46); THYROID STIM HORMONE (TSH) 6.884 uIU/mL (0.358-3.74)
== END | disposition home or self-care (01) ==
LOC: LAB 12:43
PROVIDERS: ATTEND Psychiatry & Neurology Neurology
DX: R41.3 Other amnesia (principal)
CPT/HCPCS: 36415; 80053; 82607; 84439; 84443; 85025

== ENCOUNTER → 2019-12-18 | Outpatient (CLI) | payer MEDICARE ==
[2017-10-20 11:35] VITALS: BP 121/57
[~2019-12-18] MED LIST changes: -LEVO112T4 PO; +LEVO112T49 PO
--- NOTE | 2019-12-19 16:17 | EEG ---
DATE OF SERVICE: OBJECTIVE: The patient is a 74-year-old female with a chief complaint of memory loss. DESCRIPTION: This is a digital study. Electrodes are placed according to the international 10-20 system. Bipolar and referential montages are available. Activation procedures typically include hyperventilation and intermittent photic stimulation. INTERPRETATION: The waking background consists of 9-10 Hz, 50-100 microvolt activity, symmetrically distributed over parietooccipital regions and reactive to eye opening. Hyperventilation and intermittent photic stimulation are noncontributory. Stage 1 sleep is achieved with normal electroencephalogram patterns. IMPRESSION: This electroencephalogram with the patient awake and asleep is within normal limits. There is no focal, paroxysmal, or epileptiform activity. Thank you for letting us help with the patient's care. HARSHIL KAYE MD DR: KATLYN/anjali JOB#: [id number] / [id number]
== END ==
LOC: RT 10:55
PROVIDERS: ATTEND Psychiatry & Neurology Neurology
DX: R41.3 Other amnesia (principal)
CPT/HCPCS: 95816

== ENCOUNTER → 2021-07-05 | Outpatient (CLI) | payer MEDICARE ==
[2017-10-20 11:35] VITALS: BP 121/57
--- NOTE | 2021-07-05 15:15 | KCIC ---
EXAM: Pelvis and right hip, 2 views. HISTORY: Pain. Fall. COMPARISON: None. FINDINGS: A frontal view of the pelvis and frog-leg view the right hip are obtained. There is no acut e fracture, dislocation or subluxation. There is lumbar scoliosis and degenerative change of the visu alized lower lumbar levels. There is suspected bone demineralization. IMPRESSION: No acute osseous finding. Electronically signed by: Anneliese Rios MD (07/05/2021 3:13 PM) [id number]
== END ==
LOC: KCIC 14:05
PROVIDERS: ATTEND Nurse Practitioner Family
DX: M47.816 Spondylosis without myelopathy or radiculopathy, lumbar region (principal); M41.86 Other forms of scoliosis, lumbar region; M25.551 Pain in right hip; Z68.28 Body mass index [BMI] 28.0-28.9, adult
CPT/HCPCS: 73501

== ENCOUNTER → 2021-09-08 | Outpatient (CLI) | payer MEDICARE ==
[2017-10-20 11:35] VITALS: BP 121/57
[~2021-09-08] MED LIST changes: +BUPIVACAINE MPF 0.5% 10 ML VIAL. IJ ONE; +IOHEXOL 300 MG/ML 50 ML VIAL. INT ART ONE; +LIDOCAINE 1% Multi-Dose 20 ML VIAL. INJ ONE; +TRIAMCINOLONE ACETONIDE 40 MG/ML VIAL. INT ART ONE
--- NOTE | 2021-09-08 12:03 | RAD ---
EXAM: Fluoroscopically guided right hip joint injection for therapeutic purposes INDICATION: Right leg and knee pain, right hip osteoarthrosis. COMPARISON: None TECHNIQUE/FINDINGS: The purpose of the procedure and risks including infection, bleeding, contrast reaction, and pain wer e discussed with the patient. Informed consent was obtained. A timeout was performed. After obtaining consent, the patient was placed supine on the fluoroscopy table with the right hip in ternally rotated. The skin overlying the right hip was marked, sterilized and draped. Superficial a nd deep soft tissues were anesthetized with 1% lidocaine. Utilizing fluoroscopic guidance, a 22-gaug e 3.5 inch needle was advanced into the joint. Intraarticular position was confirmed with injection o f a small amount of iodinated contrast. Subsequently, 2 mL of Kenalog (40 mg/mL), 2 mL bupivacaine, and 1 mL 1 percent lidocaine was injected into the joint. At the end of the procedure, the needle was removed. The overlying skin was cleansed and covered with a bandaid. The patient tolerated the proc edure well and was free of immediate complications. Total fluoroscopic time: 0.5 minutes. Total dose: 3.50 mGy. IMPRESSION: Technically successful right hip joint injection of steroid and anesthetic. Electronically signed by: Trini Reynolds MD (09/08/2021 12:01 PM) [id number]
== END | disposition home or self-care (01) ==
LOC: RAD 10:00
PROVIDERS: ATTEND Orthopaedic Surgery
DX: M16.11 Unilateral primary osteoarthritis, right hip (principal); I10 Essential (primary) hypertension; E78.00 Pure hypercholesterolemia, unspecified; J45.909 Unspecified asthma, uncomplicated; E66.9 Obesity, unspecified; K21.9 Gastro-esophageal reflux disease without esophagitis; E11.9 Type 2 diabetes mellitus without complications; E03.9 Hypothyroidism, unspecified; F41.9 Anxiety disorder, unspecified; F32.9 Major depressive disorder, single episode, unspecified; Z85.828 Personal history of other malignant neoplasm of skin; Z90.49 Acquired absence of other specified parts of digestive tract; Z98.890 Other specified postprocedural states; Z79.899 Other long term (current) drug therapy
CPT/HCPCS: 20610; 77002; J3301; J3490; Q9967

== ENCOUNTER → 2021-11-04 | Outpatient (CLI) | payer MEDICARE ==
[2017-10-20 11:35] VITALS: BP 121/57
[~2021-11-04] MED LIST changes: -TRIAMCINOLONE ACETONIDE 40 MG/ML VIAL. INT ART ONE; +TRIAMCINOLONE PRES.FREE 40 MG/ML VIAL. INT ART ONE
--- NOTE | 2021-11-04 17:04 | RAD ---
EXAM: Fluoroscopically guided left hip joint injection of steroid and anesthetic INDICATION: Left hip pain COMPARISON: Pelvis radiograph 07/05/2021 TECHNIQUE/FINDINGS: The purpose of the procedure and risks including infection, bleeding, contrast reaction, and pain wer e discussed with the patient. Informed consent was obtained. A timeout was performed. After obtaining consent, the patient was placed supine on the fluoroscopy table with the left hip int ernally rotated. The skin overlying the left hip was marked, sterilized and draped. Superficial and deep soft tissues were anesthetized with 1% lidocaine. Utilizing fluoroscopic guidance, a 22-gauge 3.5" needle was advanced into the joint. Intraarticular position was confirmed with injection of a sm all amount of iodinated contrast. Subsequently, a solution containing the following items was instill ed into the joint: 2 mL 1% lidocaine, 2 mL bupivacaine, and 1 mL Kenalog (40 mg/mL). At the end of th e procedure, the needle was removed. The overlying skin was cleansed and covered with a bandaid. The patient tolerated the procedure well and was free of immediate complications. Total fluoroscopic time: 0.6 minutes. Total dose: 4.3 mGy. 2 fluoroscopic images saved. IMPRESSION: Technically successful left hip joint injection of steroid and anesthetic. Electronically signed by: Trini Reynolds MD (11/04/2021 5:02 PM) [id number]
== END | disposition home or self-care (01) ==
LOC: RAD 13:50
PROVIDERS: ATTEND Orthopaedic Surgery
DX: M16.12 Unilateral primary osteoarthritis, left hip (principal); I10 Essential (primary) hypertension; E78.00 Pure hypercholesterolemia, unspecified; E66.9 Obesity, unspecified; K21.9 Gastro-esophageal reflux disease without esophagitis; E11.9 Type 2 diabetes mellitus without complications; E03.9 Hypothyroidism, unspecified; F41.9 Anxiety disorder, unspecified; F32.9 Major depressive disorder, single episode, unspecified; Z85.828 Personal history of other malignant neoplasm of skin; Z90.49 Acquired absence of other specified parts of digestive tract; Z90.710 Acquired absence of both cervix and uterus; Z98.890 Other specified postprocedural states; Z79.84 Long term (current) use of oral hypoglycemic drugs; Z79.899 Other long term (current) drug therapy; Z88.2 Allergy status to sulfonamides; Z88.8 Allergy status to other drugs, medicaments and biological substances
CPT/HCPCS: 20610; 77002; J3301; J3490; Q9967